=== PATIENT | male | born 1985 | race African-American/Black ===

== ENCOUNTER 2020-12-21 14:17 | Emergency (ER) | payer OTHER ==
[~2020-12-21] VITALS: Ht 167.6 cm; Wt 70.3 kg
[2020-12-21 14:26] VITALS: BP 141/87
--- NOTE | 2020-12-21 14:58 | NUR ---
Patient came in to the er c/o intermittent fever and recently diagnosed with pneumoia. On room air, breathing evenly and unlabored. Connected to the monitor and pulse ox. Kept comfortable, will continue to monitor accordingly.
--- NOTE | 2020-12-21 15:37 | NUR ---
Patient discharged to home in stable condition. Written and verbal after care instructions given. Patient verbalizes understanding of instruction.
== END 2020-12-21 15:38 | disposition home or self-care (01) ==
LOC: ER 14:17
DX: J18.9 Pneumonia, unspecified organism (principal)
CPT/HCPCS: 71045-TC